=== PATIENT | male | born 1970 | race Caucasian/White ===

== ENCOUNTER → 2020-11-04 06:41 | Outpatient (REF) | payer OTHER, SELFPAY ==
[2020-11-04 07:41] LABS: Alanine Aminotransferase 20 U/L (0-40); Albumin Level 4.3 g/dL (3.5-5.0); Alkaline Phosphatase 65 U/L (39-117); Anion Gap 13 (12-20); Aspartate Amino Transferase 22 U/L (5-37); Bilirubin Total 1.2 mg/dL (0.0-1.0); Blood Urea Nitrogen 12 mg/dL (9-16); Calcium 9.4 mg/dL (8.4-10.2); Carbon Dioxide 26 mmol/L (22-29); Chloride 104 mmol/L (96-108); Cholesterol 160 mg/dL; Estimated Glomerular Filt Rate > 60; Glucose Fasting 88 mg/dL (60-99); HDL Cholesterol 37 mg/dL; LDL Cholesterol Calculated 110 mg/dl; Potassium 4.2 mmol/L (3.3-5.1); Sodium 139 mmol/L (135-145); Total Protein 6.7 g/dL (6.5-8.0); Triglycerides 68 mg/dL
--- NOTE | 2020-11-04 07:46 | CA_ITS ---
Acquisition Time: 2020-11-04 08:16:28 Total Exercise Time: 00:11:30 Test Indications: Chest Pain Medications: LOSARTAN LIPITOR FLONASE ZETIA Protocol: CLOTILDE Max HR: 153 BPM 88% of Pred: 172 BPM Max BP: 178/068 mmHG Max Work Load: 13.4 METS PT EXERCISED ON STD CLOTILDE PROTOCOL FOR 11:30 INTO STAGE 4. MAX HR 153-88%MAX. NO CP OR SOB. RARE ISOLATED PVC. NO ISCHEMIC CHANGES. CLINICALLY AND ELEC NEG. Referred By: Lorenzo Samuels Overread By: MANUEL SAMUELS MD
== END ==
LOC: HO.CARD 06:41
PROVIDERS: PCP Internal Medicine; Visit Provider Internal Medicine
DX: I10 Essential (primary) hypertension (principal); E78.00 Pure hypercholesterolemia, unspecified; R07.9 Chest pain, unspecified; Z82.49 Family history of ischemic heart disease and other diseases of the circulatory system
CPT/HCPCS: 36415; 80053; 80061; 93017

== ENCOUNTER 2022-05-18 06:22 | Outpatient (REF) | payer OTHER, SELFPAY ==
[2022-05-18 07:31] LABS: Basophils Absolute Auto 0.3 X10*3/uL (0.0-0.2); Basophils Percent Auto 5.1 % (0-2); Eosinophils Absolute Auto 0.3 X10*3/uL (0.0-0.4); Eosinophils Percent Auto 4.8 % (0-4); Hematocrit 47.2 % (42.0-52.0); Hemoglobin 15.3 g/dl (14.0-18.0); Imm Gran Abs Auto 0.04 X10*3/uL (0.00-0.03); Imm Gran Pct Auto 0.7 % (0.0-0.4); Lymphocytes Absolute Auto 1.7 X10*3/uL (1.2-4.9); Lymphocytes Percent Auto 28.5 % (20-40); MANUAL DIFF FLAG SCAN; Mean Corpuscular HGB Conc 32.4 g/dl (31.0-36.0); Mean Corpuscular Hemoglobin 27.1 pg (27.0-33.0); Mean Corpuscular Volume 83.5 fL (80.0-98.0); Mean Platelet Volume 9.5 fL (9.4-12.4); Monocytes Absolute Auto 0.6 X10*3/uL (0.1-1.2); Monocytes Percent Auto 10.1 % (2-11); Neutrophils Absolute Auto 3.1 x10*3/uL (2.0-8.3); Neutrophils Percent Auto 50.8 % (45-73); Platelet Count 252 X10*3/uL (160-400); Red Blood Count 5.65 X10*6/uL (4.60-5.80); Red Cell Distribution Width 12.7 % (11.0-16.0); SCAN SMEAR FLAG 1
[2022-05-18 07:56] LABS: SLIDE REVIEW VERIFIED
[2022-05-18 11:14] LABS: Alanine Aminotransferase 38 U/L (0-40); Albumin Level 4.3 g/dL (3.5-5.0); Alkaline Phosphatase 56 U/L (39-117); Anion Gap 19 (12-20); Aspartate Amino Transferase 30 U/L (5-37); Bilirubin Total 0.6 mg/dL (0.0-1.0); Blood Urea Nitrogen 14 mg/dL (9-16); Calcium 9.1 mg/dL (8.4-10.2); Carbon Dioxide 22 mmol/L (22-29); Chloride 106 mmol/L (96-108); Cholesterol 192 mg/dL; Estimated Glomerular Filt Rate > 60; HDL Cholesterol 42 mg/dL; LDL Cholesterol Calculated 139 mg/dl; Potassium 4.6 mmol/L (3.3-5.1); Sodium 142 mmol/L (135-145); Total Protein 6.9 g/dL (6.5-8.0); Triglycerides 55 mg/dL
[2022-05-18 11:37] LABS: Prostate Specific Antigen 0.72 ng/mL (<0.05-4.0)
[2022-05-18 12:42] LABS: Glucose Fasting 88 mg/dL (60-99)
== END 2022-05-18 06:23 | disposition home or self-care (01) ==
LOC: HO.LAB 06:22
PROVIDERS: PCP Internal Medicine; Visit Provider Internal Medicine
DX: Z00.00 Encounter for general adult medical examination without abnormal findings (principal); Z12.5 Encounter for screening for malignant neoplasm of prostate
CPT/HCPCS: 36415; 80053; 80061; 84153; 85025

== ENCOUNTER 2022-06-30 17:00 | Outpatient (REF) | payer OTHER, SELFPAY ==
[2022-06-30 17:46] LABS: Influenza A PCR POSITIVE (Negative); Influenza B PCR NEGATIVE (Negative); Resp Syncy Virus RNA Qual PCR NEGATIVE (Negative); SARS COV2 PCR INHOUSE POSITIVE (Negative)
== END 2022-06-30 17:01 | disposition home or self-care (01) ==
LOC: HO.LNP 17:00
PROVIDERS: Visit Provider Internal Medicine
DX: Z20.822 Contact with and (suspected) exposure to COVID-19 (principal); R05.9 Cough, unspecified; R06.02 Shortness of breath
CPT/HCPCS: 0241U

== ENCOUNTER 2022-09-20 07:10 | Day surgery (SDC) | payer OTHER, SELFPAY ==
--- NOTE | 2022-09-17 10:42 | HO.ANESPROP2 ---
Documented by User: Cherie Almazan NP 09/17/22 10:43 HPI - Anesthesia Eval Consult details Narrative: 51yo M for Colonoscopy [facility] Past Medical History Medical History (Updated 09/17/22 @ 06:28 by Susan Cedillo, RN) Asthma HTN (hypertension) Hyperlipidemia Seasonal allergies Surgical History Surgical History (Updated 09/17/22 @ 06:28 by Susan Cedillo, RN) History of hip surgery Social History Social History Patient Tobacco Use Status: Never used Tobacco Use of substances other than those prescribed or required for medical reasons: No Advance Directives: No Advance Directives Information Provided: Yes Meds Allergies Allergy/AdvReac Type Severity Reaction Status Date / Time penicillin V Allergy Unknown Verified 11/06/14 00:00 Home Medications Medication Instructions Recorded Confirmed Last Taken Type albuterol sulfate 90 mcg/actuation inhalation 09/17/22 Unknown History aerosol inhaler aspirin 81 mg tablet,delayed mg 09/17/22 Unknown History release atorvastatin 80 mg tablet 1 tab PO DAILY 09/17/22 09/17/22 Unknown History ezetimibe 10 mg tablet 80 mg 09/17/22 Unknown History fluticasone furoate 100 1 puff inhalation DAILY 09/17/22 09/17/22 Unknown History mcg/actuation blister powder for inhalation (Arnuity Ellipta) fluticasone propionate 50 1 spray intranasal BID 09/17/22 09/17/22 Unknown History mcg/actuation nasal spray,suspension losartan 100 mg tablet 1 tab PO DAILY 09/17/22 09/17/22 Unknown History Exam Exam Date and Time: September 17, 2022 104 Assessment and Plan Assessment Anesthesia Assessment: Chart Reviewed Documented by User: Nitin Veloz MD 09/20/22 12:40 [facility] Past Medical History Medical History (Updated 09/17/22 @ 06:28 by Susan Cedillo, ERIKA) Asthma HTN (hypertension) Hyperlipidemia Seasonal allergies Functional capacity: independent ambulation Family History Family history of problems with anesthesia: No Surgical History Surgical History (Updated 09/17/22 @ 06:28 by Susan Cedillo RN) History of hip surgery History of Problems with Anesthesia: No Social History Social History Patient Tobacco Use Status: Never used Tobacco Use of substances other than those prescribed or required for medical reasons: No Advance Directives: No Advance Directives Information Provided: Yes Meds Allergies Allergy/AdvReac Type Severity Reaction Status Date / Time penicillin V Allergy Unknown Verified 11/06/14 00:00 Home Medications Medication Instructions Recorded Confirmed Last Taken Type albuterol sulfate 90 mcg/actuation inhalation 09/17/22 Unknown History aerosol inhaler aspirin 81 mg tablet,delayed mg 09/17/22 Unknown History release atorvastatin 80 mg tablet 1 tab PO DAILY 09/17/22 09/17/22 Unknown History ezetimibe 10 mg tablet 80 mg 09/17/22 Unknown History fluticasone furoate 100 1 puff inhalation DAILY 09/17/22 09/17/22 Unknown History mcg/actuation blister powder for inhalation (Arnuity Ellipta) fluticasone propionate 50 1 spray intranasal BID 09/17/22 09/17/22 Unknown History mcg/actuation nasal spray,suspension losartan 100 mg tablet 1 tab PO DAILY 09/17/22 09/17/22 Unknown History Exam Airway Mallampati Class: IV TM Dist: >3cm Neck ROM: Full Loose/Missing/Broken Teeth: Yes Heart: S1,S2 Lungs: b/l breath sounds Assessment and Plan Assessment Anesthesia Assessment: Anesthesia Plan Discussed Final Anesthetic Review Family History of Problems with Anesthesia: No History of Problems with Anesthesia: No NPO: Yes ASA Class: II Final Preanesthetic Review: Meds/Allgs Chart Reviewed, Consent Obtained/Reviewed and Anes Risks/Benef Reviewed Patient Risk: Intermediate Procedure Risk: Intermediate Anesthetic Plan Anesthetic Plan: MAC: Disposition: Standard PACU
[2022-09-20 08:03] VITALS: BP 109/90; PULSE 90; RESP 16; TEMP 36.5; O2SAT 97; BMI 28.7
[2022-09-20 09:56] VITALS: BP 122/74; PULSE 108; RESP 16; TEMP 36.6; O2SAT 98
--- NOTE | 2022-09-20 09:56 | P.BOP_ITS ---
Brief Operative Note Date of Service: 09/20/22 Pre-op diagnosis: Screening Post-op diagnosis: other (Polyp) Procedure: Colonoscopy to the cecum and TI with cold snare polypectomy Surgeon: Jim Boles Anesthesia: MAC Was an Balance Truing Inspector used for this Procedure?: No Estimated blood loss (mL): 2.0 Pathology: other (A. Ascending colon polyp) Condition: stable Disposition: PACU
[2022-09-20 10:10] VITALS: BP 127/74; PULSE 90; RESP 16; TEMP 36.4; O2SAT 99
--- NOTE | 2022-09-20 10:51 | OP_ITS ---
SURGEON: Jim Boles MD INDICATIONS: The patient presents for evaluation of colorectal cancer screening. Full consent has been obtained from him for this, including risks of bleeding and perforation. PREOPERATIVE DIAGNOSIS: Colorectal cancer screening. POSTOPERATIVE DIAGNOSIS: PROCEDURE PERFORMED: Colonoscopy to the cecum and terminal ileum with cold snare polypectomy. ESTIMATED BLOOD LOSS: COMPLICATIONS: ANESTHESIA: Monitored anesthesia care ASSISTANTS: SPECIMENS: POSTOPERATIVE DIAGNOSES: Colorectal cancer screening, colon polyp, diverticulosis, and internal hemorrhoids. DESCRIPTION OF PROCEDURE: The patient was placed in the left lateral decubitus position. The digital rectal exam revealed no abnormalities. The Olympus video pediatric colonoscope was then entered into the rectum and advanced easily to the cecum. Once in the cecum, I did identify normal-appearing cecal pouch with appendiceal orifice and a normal-appearing ileocecal valve. The terminal ileum was cannulated and appeared normal. The scope was withdrawn back in the colon. The entire cecum and ileocecal valve appeared normal. The scope was slowly withdrawn assessing all mucosal surfaces carefully. Preparation was excellent. In the proximal ascending colon, there was an approximately 5 mm slightly raised polyp which was removed by cold snare polypectomy and recovered by suction. The polypectomy site appeared clean, without any sign of residual polyp nor significant bleeding. I did not visualize any other polyps, colitis nor angiodysplasia. There was a mild amount of sigmoid diverticulosis. In the rectum, scope was retroflexed, visualizing small internal hemorrhoids, but no other pathology. The rectal mucosa appeared normal. The scope was straightened and withdrawn from the patient. He tolerated the procedure well and was returned to the recovery area in stable condition. IMPRESSION: 1. Small colon polyp 2. Diverticulosis. 3. Internal hemorrhoids. PLAN: The results of the biopsy will be checked. If this is a tubular adenoma, I would recommend a followup colonoscopy in 5 years. If it is only hyperplastic, I would recommend followup colonoscopy in 10 years. He will otherwise see me on a p.r.n. basis. MD RAÚL Odell/LATOSHA / [id number] MTDReinaldo
== END 2022-09-20 10:36 | disposition home or self-care (01) ==
PROVIDERS: PCP Internal Medicine; Visit Provider Internal Medicine
PROC: 0DJD8ZZ Inspection of Lower Intestinal Tract, Via Natural or Artificial Opening Endoscopic (ICD-10-PCS; CPT 45378; principal; 2022-09-20 08:30)
DX: Z12.11 Encounter for screening for malignant neoplasm of colon (principal); D12.2 Benign neoplasm of ascending colon; K57.30 Diverticulosis of large intestine without perforation or abscess without bleeding; K64.8 Other hemorrhoids; I10 Essential (primary) hypertension; E78.5 Hyperlipidemia, unspecified; J45.909 Unspecified asthma, uncomplicated; Z79.82 Long term (current) use of aspirin; Z79.899 Other long term (current) drug therapy; Z88.0 Allergy status to penicillin
CPT/HCPCS: 45385; 88305

== ENCOUNTER → 2023-01-13 07:09 | Outpatient (REF) | payer OTHER, SELFPAY ==
--- NOTE | 2023-01-13 08:00 | CA_ITS ---
Acquisition Time: 2023-01-13 08:07:13 Total Exercise Time: 00:11:01 Test Indications: CHAEST PAIN Medications: Protocol: CLOTILDE Max HR: 160 BPM 94% of Pred: 169 BPM Max BP: 150/082 mmHG Max Work Load: 13.4 METS PT EXERCISED ON STD CLOTILDE PROTOCOL FOR 11 MIN INTO STAGE 4. MAX HR 160-94%MAX. NO C/O CP OR SOB. NO EKG MCHANGES. NO ARRHYTHMISAS. CLINICALLY AND ELEC NEG. Referred By: Lorenzo Samuels Overread By: MANUEL SAMUELS MD
== END ==
LOC: HO.CARD 07:09
PROVIDERS: PCP Internal Medicine; Visit Provider Internal Medicine
DX: E78.00 Pure hypercholesterolemia, unspecified (principal); G43.909 Migraine, unspecified, not intractable, without status migrainosus; J45.909 Unspecified asthma, uncomplicated
CPT/HCPCS: 36415; 80061; 93017

== ENCOUNTER 2023-10-24 07:18 | Outpatient (REF) | payer OTHER, SELFPAY ==
--- NOTE | ~2023-10-24 | XR_ITS ---
EXAMINATION: XR CHEST CLINICAL INFORMATION: Cough COMPARISON: None available. TECHNIQUE: 2 views of the chest were obtained. FINDINGS: No significant abnormality is noted involving the heart, lungs, mediastinum, bony thorax or soft tissues. XR/XR chest 2V IMPRESSION: Unremarkable examination.
[2023-10-24 07:35] LABS: MANUAL DIFF FLAG NO
[2023-10-24 08:31] LABS: Basophils Absolute Auto 0.2 X10*3/uL (0.0-0.2); Basophils Percent Auto 2.7 % (0-2); Eosinophils Absolute Auto 0.1 X10*3/uL (0.0-0.4); Eosinophils Percent Auto 1.5 % (0-4); Hematocrit 40.3 % (42.0-52.0); Hemoglobin 13.5 g/dl (14.0-18.0); Imm Gran Abs Auto 0.03 X10*3/uL (0.00-0.03); Imm Gran Pct Auto 0.4 % (0.0-0.4); Lymphocytes Absolute Auto 1.3 X10*3/uL (1.2-4.9); Lymphocytes Percent Auto 16.3 % (20-40); Mean Corpuscular HGB Conc 33.5 g/dl (31.0-36.0); Mean Corpuscular Hemoglobin 27.7 pg (27.0-33.0); Mean Corpuscular Volume 82.6 fL (80.0-98.0); Mean Platelet Volume 9.6 fL (9.4-12.4); Monocytes Absolute Auto 0.8 X10*3/uL (0.1-1.2); Monocytes Percent Auto 10.2 % (2-11); Neutrophils Absolute Auto 5.6 x10*3/uL (2.0-8.3); Neutrophils Percent Auto 68.9 % (45-73); Platelet Count 238 X10*3/uL (160-400); Red Blood Count 4.88 X10*6/uL (4.60-5.80); Red Cell Distribution Width 13.1 % (11.0-16.0); White Blood Count 8.2 X10*3/uL (4.8-10.8)
[2023-10-24 09:12] LABS: Alanine Aminotransferase 19 U/L (0-40); Albumin Level 3.9 g/dL (3.5-5.0); Alkaline Phosphatase 59 U/L (39-117); Anion Gap 12 (12-20); Aspartate Amino Transferase 20 U/L (5-37); Bilirubin Total 0.9 mg/dL (0.0-1.0); Blood Urea Nitrogen 13 mg/dL (9-16); Calcium 9.3 mg/dL (8.4-10.2); Carbon Dioxide 26 mmol/L (22-29); Chloride 105 mmol/L (96-108); Cholesterol 157 mg/dL (<200); Estimated Glomerular Filt Rate > 60; Glucose Random 94 mg/dL (60-115); HDL Cholesterol 39 mg/dL (>40); LDL Cholesterol Calculated 107 mg/dL (<100); Sodium 139 mmol/L (135-145); Total Protein 6.9 g/dL (6.5-8.0); Triglycerides 59 mg/dL (<150)
[2023-10-24 09:21] LABS: Prostate Specific Antigen 0.93 ng/mL (<0.05-4.0)
== END 2023-10-24 07:19 | disposition home or self-care (01) ==
LOC: HO.LAB 07:18
PROVIDERS: PCP Internal Medicine; Visit Provider Internal Medicine
DX: Z12.5 Encounter for screening for malignant neoplasm of prostate (principal); R05.9 Cough, unspecified; R04.2 Hemoptysis; I10 Essential (primary) hypertension; E78.00 Pure hypercholesterolemia, unspecified
CPT/HCPCS: 36415; 71046; 80053; 80061; 84153; 85025

== ENCOUNTER 2024-12-25 09:13 | Outpatient (REF) | payer OTHER, SELFPAY ==
--- OUTSIDE RECORDS SUMMARY | 2024-12-25 09:50 | XMS_ITS | Clinical Summary ---
Author Organization [facility] ity Address [id number] [place] [id number] Care Team Providers Care Interpreter And Translator Name Role Phone Unavailable Primary Care Provider Unavailabl e Social History Tobacco Use Types Packs/Day Years Used Date Smoking Tobacco: Never Assessed Sex and Gender Information Value Date Recorded Sex Assigned at Not on file Legal Sex Male 8:59 PM EST Gender Identity Not on file Sexual Orientation Not on file Plan of Treatment Health Maintenance Due Date Last Done Comments DTaP,Tdap,and Td Vaccines (1 - Tdap) 12/06/1990 Hepatitis B Vaccines (1 of 3 - 19+ 3-dose series) 12/06/1990 Pneumococcal Vaccine: 50+ Ye ars (1 of 1 - PCV) 12/06/2021 Zoster Vaccines (1 of 2) 12/06/2021 Cholesterol Screening (Lipid Panel) 08/05/2023 Colorectal Cancer Screening: Colonoscopy 08/05/2023 Depression Screening 08/05/2023 HIV Screening 08/05/2023 Hepatitis C Screening 08/05/2023 Social Influencers of Health Screening 08/05/2023 COVID-19 Vaccine ( - 2023-2 5 season) 2024 Influenza Vaccine (Season Ended) 2025 HIB Vaccines Aged Out No longer eligi ble based on patient's age to complete this topic HPV Vaccines Aged Out No longer eligi ble based on patient's age to complete this topic Hepatitis A Vaccines Aged Out No long er eligible based on patient's age to complete this topic IPV Vaccines Aged Out No longer eligi ble based on patient's age to complete this topic MMR Vaccines Aged Out No longer eligi ble based on patient's age to complete this topic Meningococcal ACWY Vaccine Aged Out N o longer eligible based on patient's age to complete this topic Meningococcal B Vaccine Aged Out No l onger eligible based on patient's age to complete this topic Pneumococcal Vaccine: Pediat rics (0 to 5 Years) and At-Risk Patients (6 to 64 Years) Aged Out No longer eligible b ased on patient's age to complete this topic RSV Immunization Patients Un prieto 20 months Aged Out No longer eligible b ased on patient's age to complete this topic Varicella Vaccines Aged Out No longer eligible based on patient's age to complete this topic
[2024-12-25 10:06] LABS: Basophils Absolute Auto 0.2 X10*3/uL (0.0-0.2); Basophils Percent Auto 3.2 % (0-2); Eosinophils Absolute Auto 0.1 X10*3/uL (0.0-0.4); Hemoglobin 14.2 g/dl (14.0-18.0); Imm Gran Abs Auto 0.02 X10*3/uL (0.00-0.03); Imm Gran Pct Auto 0.4 % (0.0-0.4); Lymphocytes Absolute Auto 0.7 X10*3/uL (1.2-4.9); Lymphocytes Percent Auto 15.7 % (20-40); MANUAL DIFF FLAG SCAN; Mean Corpuscular HGB Conc 33.8 g/dl (31.0-36.0); Mean Corpuscular Volume 82.7 fL (80.0-98.0); Mean Platelet Volume 9.2 fL (9.4-12.4); Monocytes Absolute Auto 0.6 X10*3/uL (0.1-1.2); Monocytes Percent Auto 13.4 % (2-11); Neutrophils Percent Auto 64.3 % (45-73); Platelet Count 214 X10*3/uL (160-400); Red Blood Count 5.08 X10*6/uL (4.60-5.80); Red Cell Distribution Width 13.1 % (11.0-16.0); SCAN SMEAR FLAG 1; White Blood Count 4.7 X10*3/uL (4.8-10.8)
[2024-12-25 10:26] LABS: Estimated Average Glucose 108 mg/dL; Hemoglobin A1C 133.1894 umol/L; Hemoglobin A1c % 5.4 % (<6.0); SLIDE REVIEW VERIFIED; Total Hemoglobin (HGBA1C) 3766.0106 umol/L
[2024-12-25 10:33] LABS: Alanine Aminotransferase 41 U/L (0-40); Albumin Level 4.2 g/dL (3.5-5.0); Alkaline Phosphatase 58 U/L (39-117); Anion Gap 9 (12-20); Aspartate Amino Transferase 33 U/L (5-37); Bilirubin Direct 0.4 mg/dL (0.0-0.5); Bilirubin Total 1.1 mg/dL (0.0-1.0); Blood Urea Nitrogen 14 mg/dL (9-16); Calcium 9.2 mg/dL (8.4-10.2); Carbon Dioxide 29 mmol/L (22-29); Chloride 106 mmol/L (96-108); Cholesterol 182 mg/dL (<200); Estimated Glomerular Filt Rate > 60; Glucose Random 88 mg/dL (60-115); HDL Cholesterol 47 mg/dL (>40); LDL Cholesterol Calculated 122 mg/dL (<100); Potassium 4.2 mmol/L (3.3-5.1); Sodium 140 mmol/L (135-145); Total Protein 6.4 g/dL (6.5-8.0); Triglycerides 66 mg/dL (<150)
[2024-12-25 10:54] LABS: Prostate Specific Antigen 1.42 ng/mL (<0.05-4.0)
== END 2024-12-25 09:14 | disposition home or self-care (01) ==
LOC: HO.LAB 09:13
PROVIDERS: PCP Internal Medicine; Visit Provider Physician Assistant
DX: E78.5 Hyperlipidemia, unspecified (principal); J45.909 Unspecified asthma, uncomplicated; I10 Essential (primary) hypertension; Z12.5 Encounter for screening for malignant neoplasm of prostate; Z13.1 Encounter for screening for diabetes mellitus
CPT/HCPCS: 36415; 80048; 80061; 80076; 83036; 84153; 85025

== ENCOUNTER 2024-12-26 10:59 | Outpatient (AMB) | payer OTHER, SELFPAY ==
--- NOTE | 2024-12-26 11:04 | A.OFFPC_ITS ---
Vital Signs 12/26/24 11:10 12/26/24 11:33 Height 5 ft 8 in Weight 84.368 kg BMI 28.3 BP 142/84 H 118/86 Respiration 16 Pulse 97 Pulse Source Pulse Oximeter Temp 98.1 F Temp Source Temporal Artery Scan Pulse Oximetry (%) 99 Oxygen Delivery Method Room Air Intake Visit Reasons: Routine Electronics Recycler Required: No Accompanied by: Self / Same As Patient Allergies penicillin V Allergy (Unknown, Verified 12/26/24 11:07) Rash Medication List - Last Reconciled 12/26/24 by DHRUV Howell albuterol sulfate 90 mcg/actuation inhalation aspirin mg atorvastatin 80 mg PO DAILY ezetimibe 80 mg fluticasone propionate 50 mcg/actuation 1 spray intranasal BID garlic 300 mg PO DAILY glucosamine HCl 500 mg PO DAILY losartan 100 mg PO DAILY multivitamin 1 tab PO DAILY omega-3 fatty acids 1,000 mg PO DAILY HPI HPI Comments History of Present Illness Details 54-year-old male with history of hyperli pidemia, hypertension, chronic left knee pain, asthma presents to the office today for management of chronic conditions and to establish care. Hypertension-blood pressure on recheck 118/86. Reports compliance with losartan 100 mg daily. 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 Last LDL remained elevated at 122. Compliant with atorvastatin 80 mg daily, Zetia 80 mg daily, [place] 3 fatty acids and garlic. Chronic left knee pain-stable overall. Had previously been following with [facility] for cortisone injections. Has never undergone surgery Bilateral hip pain-mild. 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 He is still able to ambulate and exercise. Concerns: None Health maintenance: Last colonoscopy 09/2022 with 10 year follow-up advised. Dr. Boles ROS: General: No fevers, malaise, unintentional weight loss HEENT: No blurred vision, diplopia. No sore throat, nasal congestion, rhinorrhea, sinus pain, ear pain Cardiovascular: No chest pain, palpitations, or leg edema Respiratory: No shortness of breath, wheezing, cough MSK: See HPI Neuro: No headaches, weakness, paresthesias Skin: No rashes or lesions EXAM: Constitutional - Awake and Alert, No apparent distress Eyes - PERRL Cardiovascular - S1S2, RRR, No edema Respiratory - Normal lung expansion, Normal respiratory effort, No respiratory distress, CTA bilaterally Extremities - no calf tenderness bilaterally, no swelling Skin - Warm/Dry Neurological - Alert & oriented x3 Psychological - Appropriate affect PFSH Medical History (Updated 12/26/24 @ 11:15 by DHRUV Howell) Vitamin D deficiency Hyperlipidemia Seasonal allergies Asthma HTN (hypertension) Surgical History (Updated 12/24/24 @ 16:06 by Mckayla Smith) History of colonoscopy (~09/20/22) History of hip surgery Family History (Updated 12/26/24 @ 11:30 by DHRUV Howell) Sister Myocardial infarct Social History Patient Tobacco Use Status: Never used Tobacco Questionnaire PHQ-9 Over the last 2 weeks, how often have you been bothered by any of the following problems? 1. Little interest or pleasure in doing things: not at all 2. Feeling down, depressed, or hopeless: not at all 3. Trouble falling or staying asleep, or sleeping too much: not at all 4. Feeling tired or having little energy: not at all 5. Poor appetite or overeating: not at all 6. Feeling bad about yourself - or that you are a failure or have let yourself or your family down: not at all 7. Trouble concentrating on things, such as reading the newspaper or watching television: not at all 8. Moving or speaking so slowly that other people could have noticed. Or the opposite - being so fidgety or restless that you have been moving around a lot more than usual: not at all 9. Thoughts that you would be better off or of hurting yourself in some way: not at all Total score: 0 Source: Developed by Drs. Jim Orr, Helena Blake, Danial Chandler and colleagues, with an educational shaheen from [employer]. Thrive Questionnaire Date Thrive assessed: 12/26/24 I am a: Patient What is your living situation today?: I have a steady place to live Within the past 12 months, did the food you bought not last and you didn't have the money to get more?: Never true Within the past 12 months, did you worry whether your food would run out before you got money to buy more?: Never true Do you have trouble paying for medicines?: No Do you have trouble getting transportation to medical appointments?: No Do you have trouble paying your heating and electricity bill?: No Do you have trouble taking care of your child, family member or friend?: No Do you have trouble with day-to-day activities such as bathing, preparing meals, shopping, managing finances, etc.?: No Are you currently unemployed and looking for a job?: No Are you interested in more education?: No Please select the resources that you would like help with: None THRIVE Score: 0 EV-7 AMB Questionnaire EV-7 Date EV - 7 assessed: 12/26/24 Feeling nervous, anxious, or on edge: 0 = Not at all Not being able to stop or control worryin = Several days Worrying too much about different things: 1 = Several days Trouble relaxin = Not at all Being so restless that it is hard to sit still: 0 = Not at all Becoming easily annoyed or irritable: 0 = Not at all Feeling afraid as if something awful might happen: 0 = Not at all Total EV-7 score (0-4 normal; 5-9 mild; 10-14 moderate; 15-21 severe): 2 Source: Developed by Drs. Jim Orr, Helena Blake, Danial Chandler and colleagues, with an educational shaheen from [employer]. Physical exam (Primary Care) Vital Signs: Last Vital Signs Temp 98.1 F 12/26/24 11:10 Pulse 97 12/26/24 11:10 Resp 16 12/26/24 11:10 BP 118/86 12/26/24 11:33 Pulse Ox 99 12/26/24 11:10 Oxygen Delivery Method Room Air 12/26/24 11:10 BMI result Body Mass Index 28.3 Tobacco/Smoking Status: Tobacco use Status Patient Tobacco Use Status Never used Tobacco 12/26/24 11:07 PHQ-9: PHQ-9 Score PHQ-9: Total score 0 12/26/24 11:28 Thrive Assessment: Date of Thrive Assessment Date Thrive assessed 12/26/24 12/26/24 11:15 Coding Level of Care Code New Pt Level 4 (24253) Complex EM visit Add On G2211 Diagnoses HTN (hypertension) I10 Hyperlipidemia E78.5 Asthma J45.909 Vitamin D deficiency E55.9 Assessment & Plan Assessment & Plan (1) HTN (hypertension): Code(s): I10 - Essential (primary) hypertension Category: Medical Plan: Controlled on recheck with blood pressure 118/86. Continue losartan 100 mg daily. Reviewed last renal function and electrolyte levels which were within normal limits (2) Hyperlipidemia: Code(s): E78.5 - Hyperlipidemia, unspecified Category: Medical Plan: Uncontrolled with last LDL 122. Reports he has undergone coronary artery calcium scan. Continue atorvastatin 80 mg daily, Zetia 80 mg daily, [place] 3 fatty acids and supplements. Recommend diet lower in saturated fat and highly processed foods. Increase exercise. Discussed additional medications that can be offered but he is not interested in this at this time. He does have significant family history of a heart attack and his sister at age 39. Reports he has already been seen by a filling station laborer. Reports he will work on lifestyle modification (3) Asthma: Code(s): J45.909 - Unspecified asthma, uncomplicated Category: Medical Plan: Stable. Continue albuterol in the as needed (4) Vitamin D deficiency: Code(s): E55.9 - Vitamin D deficiency, unspecified Category: Medical Plan: Recommend supplementation Plan Follow-up in the office in 6 months. Labs to be completed prior to visit. Orders: Orders Basic Metabolic Panel 6 Months E55.9 - Vitamin D deficiency, unspecified, E78.5 - Hyperlipidemia, unspecified, I10 - Essential (primary) hypertension Liver Panel 6 Months E55.9 - Vitamin D deficiency, unspecified, E78.5 - Hyperlipidemia, unspecified, I10 - Essential (primary) hypertension Lipid Panel 6 Months E55.9 - Vitamin D deficiency, unspecified, E78.5 - Hyperlipidemia, unspecified, I10 - Essential (primary) hypertension Vitamin D 25-OH Total 6 Months E55.9 - Vitamin D deficiency, unspecified
[2024-12-26 11:10] VITALS: BP 142/84; PULSE 97; RESP 16; TEMP 36.7; O2SAT 99; BMI 28.3
[2024-12-26 11:33] VITALS: BP 118/86
--- OUTSIDE RECORDS SUMMARY | 2024-12-26 12:43 | XMS_ITS | Clinical Summary ---
Author Organization [facility] ity Address [id number] [place] [phone] Care Team Providers Care Automotive Upholsterer Name Role Phone Unavailable Primary Care Provider [...]
== END 2024-12-26 11:38 | disposition home or self-care (01) ==
LOC: HO.HMCHD 11:00
PROVIDERS: PCP Internal Medicine; Visit Provider Physician Assistant
DX: I10 Essential (primary) hypertension (principal); E78.5 Hyperlipidemia, unspecified; J45.909 Unspecified asthma, uncomplicated; E55.9 Vitamin D deficiency, unspecified

== ENCOUNTER 2025-01-21 14:57 | Outpatient (AMB) | payer OTHER, SELFPAY ==
--- NOTE | 2025-01-21 14:02 | MHC.PC.OV ---
Vital Signs 01/21/25 14:02 01/21/25 15:07 01/21/25 15:09 Height 5 ft 8 in Weight 190 lb BP 132/84 Blood Pressure Location Lt brachial Position Sitting Respiration 16 Pulse 84 Pulse Source Pulse Oximeter Temp 97.4 F Temp Source Temporal Artery Scan Pulse Oximetry (%) 98 Oxygen Delivery Method Room Air Intake Visit Reasons: Diar / Stomach issues Back Tufter Required: No Accompanied by: Self / Same As Patient Allergies penicillin V Allergy (Unknown, Verified 01/21/25 14:02) Rash Tobacco use date assessed: 01/21/25 Dental Screening Dental Screen Date: 01/21/25 Did you have a dental visit in the last 12 months?: Yes Did you have a dental problem in the last 6 months where you did not have access to dental care?: No [facility] Medical History Vitamin D deficiency Hyperlipidemia Seasonal allergies Asthma HTN (hypertension) Surgical History History of colonoscopy (~09/20/22) History of hip surgery Family History Sister Myocardial infarct Social History Housing: House Patient Tobacco Use Status: Never used Tobacco e-Cigarette/Vaping Use: Never Used service: No Current occupational status: employed Cognitive needs: No Hearing needs: No Vision needs: No Questionnaire PHQ-9 Over the last 2 weeks, how often have you been bothered by any of the following problems? 1. Little interest or pleasure in doing things: not at all 2. Feeling down, depressed, or hopeless: not at all 3. Trouble falling or staying asleep, or sleeping too much: not at all 4. Feeling tired or having little energy: not at all 5. Poor appetite or overeating: not at all 6. Feeling bad about yourself - or that you are a failure or have let yourself or your family down: not at all 7. Trouble concentrating on things, such as reading the newspaper or watching television: not at all 8. Moving or speaking so slowly that other people could have noticed. Or the opposite - being so fidgety or restless that you have been moving around a lot more than usual: not at all 9. Thoughts that you would be better off or of hurting yourself in some way: not at all Total score: 0 Source: Developed by Drs. Jim Orr, Danial Mensah and colleagues, with an educational shaheen from [employer]. Thrive Questionnaire Date Thrive assessed: 01/21/25 I am a: Patient Within the past 12 months, did the food you bought not last and you didn't have the money to get more?: Never true Within the past 12 months, did you worry whether your food would run out before you got money to buy more?: Never true Do you have trouble paying for medicines?: No Do you have trouble getting transportation to medical appointments?: No Do you have trouble paying your heating and electricity bill?: No Do you have trouble taking care of your child, family member or friend?: No Do you have trouble with day-to-day activities such as bathing, preparing meals, shopping, managing finances, etc.?: No Are you currently unemployed and looking for a job?: No Are you interested in more education?: No THRIVE Score: 0 AUDIT C Alcohol Use Questionnaire (AUDIT-C) 1. How often do you have a drink containing alcohol?: Never 3. How often do you have six or more drinks on one occasion?: Never Total Score: 0 EV-7 AMB Questionnaire EV-7 Date EV - 7 assessed: 01/21/25 Feeling nervous, anxious, or on edge: 0 = Not at all Not being able to stop or control worryin = Not at all Worrying too much about different things: 0 = Not at all Trouble relaxin = Not at all Being so restless that it is hard to sit still: 0 = Not at all Becoming easily annoyed or irritable: 0 = Not at all Feeling afraid as if something awful might happen: 0 = Not at all Total EV-7 score (0-4 normal; 5-9 mild; 10-14 moderate; 15-21 severe): 0 Source: Developed by Drs. Jim Orr, Danial Mensah and colleagues, with an educational shaheen from [employer]. Physical exam (Primary Care) Vital Signs: Last Vital Signs Temp 97.4 F 01/21/25 15:09 Pulse 84 01/21/25 15:09 Resp 16 01/21/25 15:09 BP 132/84 01/21/25 15:09 Pulse Ox 98 01/21/25 15:09 Oxygen Delivery Method Room Air 01/21/25 15:09 Tobacco/Smoking Status: Tobacco use Status Tobacco use date assessed 01/21/25 01/21/25 14:03 Patient Tobacco Use Status Never used Tobacco 01/21/25 14:03 e-Cigarette/Vaping Use Never Used 01/21/25 14:03 PHQ-9: PHQ-9 Score PHQ-9: Total score 0 01/21/25 15:10 Thrive Assessment: Date of Thrive Assessment Date Thrive assessed 01/21/25 01/21/25 14:03 Coding Level of Care Code Est Pt Level 4 (96618) Complex EM visit Add On G2211 Diagnoses Diarrhea R19.7 Assessment & Plan Assessment & Plan (1) Diarrhea: Code(s): R19.7 - Diarrhea, unspecified Plan: History of Present Illness - The patient is a 54-year-old male presenting with abdominal discomfort and diarrhea following antibiotic use for a tooth infection. - The patient had a tooth infection and was prescribed clindamycin by a dentist. - The patient experienced loose stools and abdominal discomfort after starting clindamycin. - The patient stopped taking clindamycin after consulting with the dentist, but diarrhea persisted. - The patient reports no nocturnal symptoms and no recent use of NSAIDs or excessive alcohol consumption. 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 - Alcohol: Reports occasional consumption, recently at a family event. Review of Systems - Gastrointestinal: Reports diarrhea and abdominal discomfort. Denies nocturnal symptoms. - Neurological: Denies nausea. Physical Exam General: Cooperative and healthy appearing Nutritional Appearance: Well nourished Orientation/consciousness: Patient oriented x3 Limitations: No limitations Head: Normal to inspection General: Appearance normal, both eyes and all related structures Neck: Normal visual inspection Chest: Normal palpation of entire chest wall Respiratory: Normal respiratory effort Neurology: Patient oriented x3 Results Plan 1. Diarrhea - Advised to increase fluid intake to prevent dehydration. - Recommended dietary modifications including bananas, apples, and yogurt to aid recovery. - No medication required at this time as symptoms are expected to subside. Discussion Notes I discussed with the patient that the abdominal discomfort and diarrhea are likely due to the recent antibiotic use. I advised increasing fluid intake and incorporating bananas, apples, and yogurt into the diet to help manage symptoms. No medication is necessary at this time, and symptoms should improve with these measures. Follow-up was recommended if symptoms persist. Patient Instructions - Drink plenty of fluids to stay hydrated. - Eat bananas, apples, and yogurt to help with recovery. - No need for medication unless symptoms worsen. - Follow up if symptoms do not improve.
[2025-01-21 15:09] VITALS: BP 132/84; PULSE 84; RESP 16; TEMP 36.3; O2SAT 98
--- OUTSIDE RECORDS SUMMARY | 2025-01-21 16:14 | XMS_ITS | Clinical Summary ---
Author Organization [facility] ity Address [address] [place] [id number] Care Team Providers Care Shipping And Receiving Assistant Name Role Phone Unavailable Primary Care Provider [...] - 2023-2 5 season) 2024 Influenza Vaccine (#1) 2025 HIB Vaccines Aged Out No longer [...]
--- OUTSIDE RECORDS SUMMARY | 2025-01-21 16:14 | XMS_ITS | Patient Health Record ---
Author Organization [facility] Address [address] [place] [address] Care Team Providers Care Weight Checker Name Role Phone Matt (RETIRED) Lorenzo WHITE Primary Care Provide Jim Wagoner Unavailable [phone] Allergies Allergen (clinical drug ingredient) Drug/Non Drug Allergy documented on EMR Reaction Allergy Type Onset Date Status Mold Unknown Allergy Active Equine derived substance (FN) horse (uncoded) Unknown Allergy Active cats (uncoded) Unknown Allergy Activ e dogs (uncoded) Unknown Allergy Activ e Reason For Referral No Information Medications Medication SIG (Take, Route, Frequency, Duration) Notes Start Date End Date Status Fish Oil 1000 MG 1 capsule Orally Onc e a day for 30 day(s) Active Xyzal Active Losartan Potassium 100 MG Oral for 30 Active Aspir-81 Active Ezetimibe 10 MG TAKE 1 TABLET BY RAYMUNDO TH EVERY DAY Oral for 30 Active Atorvastatin Calcium 80 MG TAKE 1 TABLET BY MOUTH EVERY DAY Oral for 30 Active Immunizations Vaccine Route Administration Date Status Comme nts Influenza Unknown 04/28/2022 Administered Social History Tobacco Use: Social History Observation Description Date Details (start date - stop date) Never Smoker NA - NA Tobacco Use/Smoking Question Answer Notes Patient is a nonsmoker Alcohol Screen Question Answer Notes Did you have a drink contain ing alcohol in the past year? Yes How often did you have a dri nk containing alcohol in the past year? 2 to 4 times a month (2 points) How many drinks did you have on a typical day when you were drinking in the past year? 1 or 2 drinks (0 point) How often did you have 6 or more drinks on one occasion in the past year? Never (0 point) Points 2 Interpretation Negative Section Notes: Nonsmoker; no sig alcohol Problems Problem Type SNOMED Code ICD Code Onset Dates Problem Status W/U Status Risk Notes Problem 422663097 Colon cancer screening (Z12.11) Active confirmed Problem Diverticular disease of colon (846620957) Diverticulosis of large intestine without perforation or abscess without bleeding (K57.30) Active confirmed Problem 044571671747448 Preprocedural examination (Z01.818) Active confirmed Plan Of Treatment Pending Test Test Name Order Date Pathology 09/20/2022 Future Test Test Name Order Date COLONOSCOPY 07/21/2022 Insurance Providers Payer Name Payer Address Payer Phone Subscriber Number Group Number Insured Name Patient Relationship to Insured Coverage Start Date Coverage End Date [facility] [address] [place] [phone] [id number] WENDIE PAGE Self - patient is the insured Medical (General) History Medical History History ICD Code HTN Allergies/Asthma Hyperlipidemia Denies OR,DM,CVA,Lung disease,renal dise ase Surgical History Surgery Date(Month/Year) Bilateral hip surgery in and 1985 for temporary placement of pins . The pins were subsequently removed.
== END 2025-01-21 15:38 | disposition home or self-care (01) ==
LOC: HO.HMCHD 14:58
PROVIDERS: PCP Internal Medicine; Visit Provider Internal Medicine
DX: R19.7 Diarrhea, unspecified (principal)

== ENCOUNTER 2025-06-19 12:54 | Outpatient (AMB) | payer OTHER, SELFPAY ==
--- NOTE | 2025-06-19 13:02 | MHC.PC.OV ---
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 Required: No Accompanied by: Self / Same As Patient Allergies penicillin V Allergy (Unknown, Verified 06/19/25 13:02) Rash Medication List - Last Reconciled 06/19/25 by DHRUV Howell albuterol sulfate 90 mcg/actuation inhalation aspirin mg atorvastatin 80 mg PO DAILY escitalopram oxalate 10 mg PO DAILY ezetimibe 10 mg PO DAILY fluticasone propionate 50 mcg/actuation 1 spray intranasal BID garlic 300 mg PO DAILY glucosamine HCl 500 mg PO DAILY hydroxyzine HCl 50 mg (2 x 25 mg) PO BEDTIME losartan 100 mg PO DAILY multivitamin 1 tab PO DAILY omega-3 fatty acids 1,000 mg PO DAILY Tobacco use date assessed: 01/21/25 Dental Screening Dental Screen Date: 01/21/25 HPI HPI Comments History of Present Illness Details 54-year-old male with history of hyperlipidemia, hypertension, chronic left knee pain, asthma presents to the office today for management of chronic conditions and to establish care. Hypertension-blood pressure on recheck 118/86. Reports compliance with losartan 100 mg daily. 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 Last LDL remained elevated at 122. Compliant with atorvastatin 80 mg daily, Zetia 80 mg daily, [place] 3 fatty acids and garlic. Chronic left knee pain-stable overall. Had previously been following with [facility] for cortisone injections. Has never undergone surgery Bilateral hip pain-mild. 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 He is still able to ambulate and exercise. Concerns: Has had significant stressors dating back mid March. 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 He has still been getting full compensation but is feeling quite depressed and anxious secondary to this. He reports ruminating throughout the day and is having significant difficulty sleeping. He will wake up and feel his heart racing. He is trying to stay busy but is having difficulty finding things to do as he is off all day. As a result, he feels like his blood pressures have been significantly elevated. No SI/HI. No headaches, vision changes, lightheadedness, dyspnea, chest pains. He states he has been watching what he is eating but is not exercising regularly though does desire to get back into this. He has had similar episodes in the past. He had underwent stress test in the past which were negative for any dysrhythmia or ischemia. He is not currently on any medications for his mood. He does inquire about natural supplements. Health maintenance: Last colonoscopy 09/2022 with 10 year follow-up advised. Dr. Boles ROS: General: No fevers, malaise, unintentional weight loss HEENT: No blurred vision, diplopia. No sore throat, nasal congestion, rhinorrhea, sinus pain, ear pain Cardiovascular: No chest pain, palpitations, or leg edema Respiratory: No shortness of breath, wheezing, cough MSK: See HPI Neuro: No headaches, weakness, paresthesias Skin: No rashes or lesions EXAM: Constitutional - Awake and Alert, No apparent distress Eyes - PERRL Cardiovascular - S1S2, RRR, No edema Respiratory - Normal lung expansion, Normal respiratory effort, No respiratory distress, CTA bilaterally Extremities - no calf tenderness bilaterally, no swelling Skin - Warm/Dry Neurological - Alert & oriented x3 Psychological - Appropriate affect [facility] Medical History (Updated 06/19/25 @ 13:31 by DHRUV Howell) Generalized anxiety disorder Vitamin D deficiency Hyperlipidemia Seasonal allergies Asthma HTN (hypertension) Surgical History History of colonoscopy (~09/20/22) History of hip surgery Family History Sister Myocardial infarct Social History Housing: House Patient Tobacco Use Status: Never used Tobacco e-Cigarette/Vaping Use: Never Used service: No Current occupational status: employed Cognitive needs: No Hearing needs: No Vision needs: No Questionnaire Thrive Questionnaire Date Thrive assessed: 01/21/25 EV-7 AMB Questionnaire EV-7 Date EV - 7 assessed: 01/21/25 Source: Developed by Drs. Jim Orr, Helena Blake, Danial Chandler and colleagues, with an educational shaheen from [employer]. Physical exam (Primary Care) Vital Signs: Last Vital Signs Temp 98.6 F 06/19/25 13:06 Pulse 70 06/19/25 13:06 Resp 14 06/19/25 13:06 BP 130/86 06/19/25 13:35 Pulse Ox 98 06/19/25 13:06 BMI result Body Mass Index 29.8 Tobacco/Smoking Status: Tobacco use Status Tobacco use date assessed 01/21/25 06/19/25 13:05 Patient Tobacco Use Status Never used Tobacco 06/19/25 13:05 e-Cigarette/Vaping Use Never Used 06/19/25 13:05 Thrive Assessment: Date of Thrive Assessment Date Thrive assessed 01/21/25 06/19/25 13:05 Coding Level of Care Code Est Pt Level 4 (85562) Add On Problem Visit Only Diagnoses Generalized anxiety disorder F41.1 HTN (hypertension) I10 Hyperlipidemia E78.5 Asthma J45.909 Vitamin D deficiency E55.9 Assessment & Plan Assessment & Plan (1) Generalized anxiety disorder: Code(s): F41.1 - Generalized anxiety disorder Category: Medical Plan: With depressive symptoms. No alarm symptoms at this time. We did discuss supplements such as Skye Gonda but I do not feel like this will fully manage his symptoms. We discussed about adding an SSRI which he is agreeable to. Initiated Lexapro 10 mg daily. Counseled on dosing and side effects including black box warning. He is given information on how to seek out a counselor. We also discussed coping mechanisms such as grounding techniques and mindfulness and he is given paperwork on this. (2) HTN (hypertension): Code(s): I10 - Essential (primary) hypertension Category: Medical Plan: Controlled on recheck. Continue losartan 100 mg daily. Check renal function electrolyte levels (3) Hyperlipidemia: Code(s): E78.5 - Hyperlipidemia, unspecified Category: Medical Plan: Lipid panel ordered. He will continue atorvastatin 80 mg daily. Recommend diet low in saturated fats and highly processed foods. Recommend regular exercise as discussed. (4) Asthma: Code(s): J45.909 - Unspecified asthma, uncomplicated Category: Medical Plan: Stable. Continue albuterol in the as needed (5) Vitamin D deficiency: Code(s): E55.9 - Vitamin D deficiency, unspecified Category: Medical Plan: Recommend supplementation Plan Follow-up in the office in 4 weeks, sooner if needed. Orders: Orders Lipid Panel Today E55.9 - Vitamin D deficiency, unspecified, E78.5 - Hyperlipidemia, unspecified, F41.1 - Generalized anxiety disorder, I10 - Essential (primary) hypertension, J45.909 - Unspecified asthma, uncomplicated, N62 - Hypertrophy of breast Vitamin D 25-OH Total Today E55.9 - Vitamin D deficiency, unspecified, E78.5 - Hyperlipidemia, unspecified, F41.1 - Generalized anxiety disorder, I10 - Essential (primary) hypertension, J45.909 - Unspecified asthma, uncomplicated, N62 - Hypertrophy of breast Basic Metabolic Panel Today E55.9 - Vitamin D deficiency, unspecified, E78.5 - Hyperlipidemia, unspecified, F41.1 - Generalized anxiety disorder, I10 - Essential (primary) hypertension, J45.909 - Unspecified asthma, uncomplicated, N62 - Hypertrophy of breast Liver Panel Today E55.9 - Vitamin D deficiency, unspecified, E78.5 - Hyperlipidemia, unspecified, F41.1 - Generalized anxiety disorder, I10 - Essential (primary) hypertension, J45.909 - Unspecified asthma, uncomplicated, N62 - Hypertrophy of breast TSH reflex Free T4 Today E55.9 - Vitamin D deficiency, unspecified, E78.5 - Hyperlipidemia, unspecified, F41.1 - Generalized anxiety disorder, I10 - Essential (primary) hypertension, J45.909 - Unspecified asthma, uncomplicated, N62 - Hypertrophy of breast Testosterone, Free/Total Today E55.9 - Vitamin D deficiency, unspecified, E78.5 - Hyperlipidemia, unspecified, F41.1 - Generalized anxiety disorder, I10 - Essential (primary) hypertension, J45.909 - Unspecified asthma, uncomplicated, N62 - Hypertrophy of breast Medications: New escitalopram oxalate Take 1/2 tab daily x 1 week, then increase to 1 tab daily 10 mg PO DAILY 90 tabs 1RF hydroxyzine HCl 50 mg (2 x 25 mg) PO BEDTIME 180 tabs 0RF Patient Instructions: Check [employer] for counselor Try melatonin and valerian root for sleep Ashwaganda can be helpful for stress
[2025-06-19 13:06] VITALS: BP 150/90; PULSE 70; RESP 14; TEMP 37; O2SAT 98; BMI 29.8
[2025-06-19 13:35] VITALS: BP 130/86
--- OUTSIDE RECORDS SUMMARY | 2025-06-19 19:55 | XMS_ITS | Patient Health Record ---
Author Organization [facility] Address [address] [place] [address] Care Team Providers Care Construction Project Mgr Name Role Phone Matt (RETIRED) Lorenzo WHITE Primary Care Provide Jim Wagoner [phone] Allergies Allergen (clinical drug ingredient) Drug/Non Drug Allergy documented on EMR Reaction Allergy Type Onset Date Status cats (uncoded) Unknown Allergy Activ e dogs (uncoded) Unknown Allergy Activ e horse (uncoded) Unknown Allergy Acti ve Mold Unknown Allergy Active Reason For Referral No Information Medications Medication SIG (Take, Route, Frequency, Duration) Notes Start Date End Date Status Fish Oil 1000 MG Capsule 1 capsule Orall y Once a day; Duration: 30 day(s) Active Xyzal Active Losartan Potassium 100 MG Tablet Oral; Duration: 30 Active Aspir-81 Active Ezetimibe 10 MG Tablet TAKE 1 TABLET BY MOUTH EVERY DAY Oral; Duration: 30 Active Atorvastatin Calcium 80 MG Tablet TAKE 1 TABLET BY MOUTH EVERY DAY Oral; Duration: 30 Active Immunizations Vaccine Route Administration Date Status Comme nts Influenza Unknown 04/28/2022 Administered Social History Tobacco Use: Social History Observation Description Date Details (start date - stop date) Never Smoker NA - NA Social History Drugs/Alcohol: Social Info Question Answer Notes Alcohol Screen Did you have a drink containing alcohol in the past year? Yes How often did you have a drink containing alcohol in the past year? 2 to 4 times a month (2 points) How many drinks did you have on a typical day when you were drinking in the past year? 1 or 2 drinks (0 point) How often did you have 6 or more drinks on one occasion in the past year? 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 [place] Living with: Girlfriend Section Notes: Nonsmoker; no sig alcohol Problems Problem Type SNOMED Code ICD Code Onset Dates Problem Status W/U Status Risk Notes Problem Colon cancer screening (334029796) Colon cancer screening (Z12.11) Active confirmed Problem Diverticular disease of colon (116766469) Diverticulosis of large intestine without perforation or abscess without bleeding (K57.30) Active confirmed Problem Preprocedural examination (602385534938394) Preprocedural examination (Z01.818) Active confirmed Plan Of Treatment Pending Test Test Name Order Date Pathology 09/20/2022 Future Test Test Name Order Date COLONOSCOPY 07/21/2022 Insurance Providers Payer Name Payer Address Payer Phone Subscriber Number Group Number Insured Name Patient Relationship to Insured Coverage Start Date Coverage End Date [facility] [address] [place] [phone] [id number] WENDIE PAGE Self - patient is the insured Medical (General) History Medical History History ICD Code HTN Allergies/Asthma Hyperlipidemia Denies [place],DM,CVA,Lung disease,renal dise ase Surgical History Surgery Date(Month/Year) Bilateral hip surgery in and 1985 for temporary placement of pins . The pins were subsequently removed.
--- OUTSIDE RECORDS SUMMARY | 2025-06-19 19:55 | XMS_ITS | Clinical Summary ---
Author Organization [facility] ity Address [address] [place] [address] Care Team Providers Care Health Care Consultant Name Role Phone Unavailable Primary Care Provider Unavailabl e Social History Tobacco Use Types Packs/Day Years Used Date Smoking Tobacco: Never Assessed Sex and Gender Information Value Date Recorded Sex Assigned at Not on file Legal Sex Male 8:59 PM EST Gender Identity Not on file Sexual Orientation Not on file Plan of Treatment Health Maintenance Due Date Last Done Comments Colorectal Cancer Screening: Colonoscopy 1971 DTaP,Tdap,and Td Vaccines (1 - Tdap) 12/06/1990 Hepatitis B Vaccines (1 of 3 - 19+ 3-dose series) 12/06/1990 Pneumococcal Vaccine: 50+ Ye ars (1 of 1 - PCV) 12/06/2021 Zoster Vaccines (1 of 2) 12/06/2021 Cholesterol Screening (Lipid Panel) 08/05/2023 HIV Screening 08/05/2023 Hepatitis C Screening 08/05/2023 Social Influencers of Health Screening 08/05/2023 Depression Screening 07/11/2024 COVID-19 Vaccine (1 - 2024-2 6 season) 2025 Influenza Vaccine (#1) 2025 RSV Immunization Adult Patie nts (1 - 1-dose 75+ series) 12/06/2046 HIB Vaccines Aged Out No longer eligi [...]
== END 2025-06-19 13:39 | disposition home or self-care (01) ==
LOC: HO.HMCHD 12:55
PROVIDERS: PCP Physician Assistant; Visit Provider Physician Assistant
DX: F41.1 Generalized anxiety disorder (principal); I10 Essential (primary) hypertension; E78.5 Hyperlipidemia, unspecified; J45.909 Unspecified asthma, uncomplicated; E55.9 Vitamin D deficiency, unspecified

== ENCOUNTER 2025-06-19 12:54 | Outpatient (REF) | payer OTHER, SELFPAY ==
[2025-06-19 15:06] LABS: Alanine Aminotransferase 47 U/L (0-40); Albumin Level 4.8 g/dL (3.5-5.0); Alkaline Phosphatase 65 U/L (39-117); Anion Gap 13 (12-20); Aspartate Amino Transferase 40 U/L (5-37); Blood Urea Nitrogen 13 mg/dL (9-16); Calcium 9.9 mg/dL (8.4-10.2); Carbon Dioxide 27 mmol/L (22-29); Chloride 104 mmol/L (96-108); Cholesterol 201 mg/dL (<200); Estimated Glomerular Filt Rate > 60; HDL Cholesterol 45 mg/dL (>40); Potassium 4.4 mmol/L (3.3-5.1); Sodium 140 mmol/L (135-145); Total Protein 7.3 g/dL (6.5-8.0); Triglycerides 70 mg/dL (<150)
[2025-06-25 15:09] LABS: Testosterone, Free 60.3 pg/mL (35.0-155.0)
== END 2025-06-19 12:55 | disposition home or self-care (01) ==
LOC: HO.LAB 12:54
PROVIDERS: PCP Physician Assistant; Visit Provider Physician Assistant
DX: F41.1 Generalized anxiety disorder (principal); N62 Hypertrophy of breast; J45.909 Unspecified asthma, uncomplicated; E55.9 Vitamin D deficiency, unspecified; E78.5 Hyperlipidemia, unspecified; I10 Essential (primary) hypertension
CPT/HCPCS: 36415; 80048; 80061; 80076; 82306; 84402; 84403; 84443